=== PATIENT | female | born 1990 | race American Indian/Alaskan Native ===

== ENCOUNTER 2018-07-18 23:58 | Emergency (ER) | payer MEDICAID ==
[2018-07-19 01:05] LABS: Basophils % (Auto) 0.3 % (0.0-1.8); Eosinophils # (Auto) 0.1 K/mm3 (0.0-0.4); Eosinophils % (Auto) 1.9 % (0.0-4.3); Hematocrit 36.3 % (30.3-42.9); Hemoglobin 12.1 gm/dl (10.1-14.3); Lymphocytes # (Auto) 1.9 K/mm3 (1.2-5.4); Lymphocytes % (Auto) 26.4 % (13.4-35.0); Mean Corpuscular HGB Conc 33 % (30-34); Mean Corpuscular Hemoglobin 30 pg (28-32); Mean Corpuscular Volume 90 fl (79-97); Monocytes # (Auto) 0.7 K/mm3 (0.0-0.8); Monocytes % (Auto) 9.3 % (0.0-7.3); Platelet Count 151 K/mm3 (140-440); Red Blood Count 4.01 M/mm3 (3.65-5.03); Red Cell Distribution Width 13.3 % (13.2-15.2)
[2018-07-19 01:42] LABS: Bacteria,Urine 4+ /HPF (Negative); Bilirubin,Urine NEG (Negative); Blood,Urine NEG (Negative); Color,Urine Yellow (Yellow); Hyaline Casts,Urine 1 /LPF; Mucus,Urine 1+ /HPF; Protein,Urine <15 mg/dL mg/dL (Negative); Urobilinogen,Urine < 2.0 mg/dL (<2.0)
--- NOTE | 2018-07-19 03:51 | Ultrasound Report ---
FINAL REPORT EXAM: US OB > = 14 WEEKS FETUS HISTORY: vag bleed and abd pain TECHNIQUE: Transabdominal imaging was obtained of the pelvis including Doppler interrogation of the fetus. FINDINGS: There is a single viable intrauterine with an estimated gestational age of 19 weeks 3 days based on sonographic criteria. The heart rate is 133 BPM. The cervix is closed. It measures 3.8 cm in length. The placenta is posterior in position is grade 0. The amniotic fluid volume is normal. At this time the is in breech presentation. There are no gross anomalies involving the choroid plexus, cisterna magna, cerebellum or lateral ventricle. The stomach, kidneys, bladder, diaphragm, heart, three-vessel cord and cord insertion are unremarkable. The spine is not adequately seen for evaluation. The four-chamber heart also is not well seen. The estimated weight is 308 grams. IMPRESSION: Single viable breech intrauterine with an estimated gestational age of 19 weeks 3 days. The heart rate is 133 BPM. No gross anomalies identified.
--- NOTE | 2018-07-19 04:22 | Emergency Department Report ---
ED Female HPI - General Chief complaint: Abdominal Pain Stated complaint: ABD PAIN/VAG BLEEDING; 19.5DYS GEST Time Seen by Provider: 07/19/18 04:17 Source: patient Mode of arrival: Ambulatory Limitations: No Limitations - History of Present Illness Initial comments: Patient is 28 years old female 2 para 1. Patient presented to the ER complaining of lower abdominal pain and one episode of vaginal bleeding. Patient stated that she was changing her son diaper and he kicked her in her abdomen. Patient is 19 weeks . Patient denied any other complaint. MD Complaint: vaginal bleeding, pelvic pain -: This evening Radiation: suprapubic Quality: cramping Are you Now?: Yes - Related Data Allergies Allergy/AdvReac Type Severity Reaction Status Date / Time No Known Allergies Allergy Verified 07/19/18 00:08 ED Review of Systems ROS: Stated complaint: ABD PAIN/VAG BLEEDING; 19.5DYS GEST Other details as noted in HPI Comment: All other systems reviewed and negative Constitutional: denies: chills, fever Respiratory: denies: cough, orthopnea, shortness of breath, SOB with exertion, SOB at rest, wheezing Cardiovascular: denies: chest pain, palpitations, dyspnea on exertion, orthopnea Gastrointestinal: abdominal pain. denies: nausea, vomiting, diarrhea, constipation, hematemesis, hematochezia Musculoskeletal: denies: back pain Neurological: denies: headache, weakness, numbness, paresthesias, confusion ED Past Medical Hx - Past Medical History Previous Medical History?: No - Surgical History Past Surgical History?: Yes Additional Surgical History: ovarian cyst - Social History Smoking Status: Never Smoker Substance Use Type: None ED Physical Exam - General Limitations: No Limitations General appearance: alert, in no apparent distress - Head Head exam: Present: atraumatic, normocephalic, normal inspection - Eye Eye exam: Present: normal appearance - ENT ENT exam: Present: normal exam, normal orophraynx, mucous membranes moist - Neck Neck exam: Present: normal inspection, full ROM. Absent: tenderness, meningismus, lymphadenopathy, thyromegaly - Respiratory Respiratory exam: Present: normal lung sounds bilaterally. Absent: respiratory distress, wheezes, rales, rhonchi, stridor, chest wall tenderness, accessory muscle use, decreased breath sounds, prolonged expiratory - Cardiovascular Cardiovascular Exam: Present: regular rate, normal rhythm, normal heart sounds - GI/Abdominal GI/Abdominal exam: Present: soft, normal bowel sounds. Absent: distended, tenderness, guarding, rebound, rigid, organomegaly, mass, bruit, pulsatile mass , hernia - Extremities Exam Extremities exam: Present: normal inspection, full ROM, normal capillary refill. Absent: pedal edema, calf tenderness - Neurological Exam Neurological exam: Present: alert, oriented X3, CN II-XII intact, normal gait, reflexes normal - Skin Skin exam: Present: warm, intact, normal color ED Course Vital Signs 07/19/18 07/19/18 00:02 00:03 Temperature 98.9 F 98.9 F Pulse Rate 86 88 Respiratory 18 18 Rate Blood Pressure 120/70 120/70 O2 Sat by Pulse 99 99 Oximetry ED Medical Decision Making - Lab Data Result diagrams: 07/19/18 00:20 - Radiology Data Radiology results: report reviewed Referring Physician: GARY PAVON Patient Name: LISA JULIO Date of : 1990 Sex: Female Report Date: 2018-07-19 Report Status: Finalized Findings [facility] [address] [place] [address] Ultrasound Report Signed Patient: LISA JULIO MR#: [id number] : 1990 Acct:[id number] Age/Sex: 28 / F ADM Date: 07/18/18 Loc: ED Attending Dr: Ordering Physician: GARY PAVON Date of Service: 07/19/18 Procedure(s): US OB >= 14 weeks Fetus Accession Number(s): [id number] cc: GARY PAVON FINAL REPORT EXAM: US OB gt; = 14 WEEKS FETUS HISTORY: vag bleed and abd pain TECHNIQUE: Transabdominal imaging was obtained of the pelvis including Doppler interrogation of the fetus. FINDINGS: There is a single viable intrauterine with an estimated gestational age of 19 weeks 3 days based on sonographic criteria. The heart rate is 133 BPM. The cervix is closed. It measures 3.8 cm in length. The placenta is posterior in position is grade 0. The amniotic fluid volume is normal. At this time the is in breech presentation. There are no gross anomalies involving the choroid plexus, cisterna magna, cerebellum or lateral ventricle. The stomach, kidneys, bladder, diaphragm, heart, three-vessel cord and cord insertion are unremarkable. The spine is not adequately seen for evaluation. The four-chamber heart also is not well seen. The estimated weight is 308 grams. IMPRESSION: Single viable breech intrauterine with an estimated gestational age of 19 weeks 3 days. The heart rate is 133 BPM. No gross anomalies identified. Transcribed By: RB Dictated By: NIKI US MD Electronically Authenticated By: NIKI US MD Signed Date/Time: 07/19/18349 DD/ 9 TD/TT: 07/19/18349 - Medical Decision Making Patient is 28 years old female 2 para 1. Patient presented to the ER complaining of lower abdominal pain and one episode of vaginal bleeding. Patient stated that she was changing her son diaper and he kicked her in her abdomen. Patient is 19 weeks . Patient denied any other complaint. Patient ultrasound showed a viable 19 weeks baby. No other abnormalities. I advised patient to follow up with her OB doctor in the next 2-3 days. I also advised to return to the ER if her symptoms are not improving. Critical care attestation.: If time is entered above; I have spent that time in minutes in the direct care of this critically ill patient, excluding procedure time. ED Disposition Clinical Impression: Abdominal pain affecting Disposition: DC-01 TO HOME OR SELFCARE Is pt being admited?: No Condition: Stable Instructions: Abdominal Pain in (ED) Referrals: PRIMARY CAREMD [Primary Care Provider] - 3-5 Days
[2018-07-19 04:37] VITALS: BP 128/78
== END 2018-07-19 04:36 | disposition home or self-care (01) ==
LOC: ED 23:58
DX: O46.92 Antepartum hemorrhage, unspecified, second trimester (principal); Z3A.19 19 weeks gestation of pregnancy
CPT/HCPCS: 36415; 76805; 81001; 84702; 85025; 99284